=== PATIENT | female | born 1950 | race Caucasian/White ===

== ENCOUNTER → 2017-06-19 | Outpatient (CLI) | payer OTHER, MEDICARE | LOC: FIMAGING 12:35 | PROVIDERS: ATTEND Internal Medicine Endocrinology, Diabetes & Metabolism | DX: Z13.820 Encounter for screening for osteoporosis (principal); M85.89 Other specified disorders of bone density and structure, multiple sites; Z78.0 Asymptomatic menopausal state ==

== ENCOUNTER → 2017-08-28 | Outpatient (CLI) | payer OTHER, MEDICARE | LOC: BMCIMAGING 18:40 | PROVIDERS: ATTEND Family Medicine | DX: M79.672 Pain in left foot (principal) ==

== ENCOUNTER → 2017-11-02 | Outpatient (CLI) | payer OTHER, MEDICARE ==
[~2017-11-02] MED LIST: IOPAMIDOL (ISOVUE-300) 100 ML BTL ONE
== END ==
LOC: FIMAGING 08:24
PROVIDERS: ATTEND Physician Assistant
DX: K76.9 Liver disease, unspecified (principal)
CPT/HCPCS: 74177; Q9967

== ENCOUNTER 2017-11-08 22:15 | Emergency (ER) | payer OTHER, MEDICARE ==
[2017-11-08] MEDS ORDERED: DIAZEPAM 5 MG/ML 1 ML SYR IVP ONE (22:47)
--- NOTE | 2017-11-08 22:47 | EDPHY ---
General - History Smoking Status: Never smoked Time Seen by Provider: 11/08/17 22:41 Narrative: PHYSICIAN DOCUMENTATION: The patient was evaluated and managed by the Physician Clinical Immunologist. My co- signature indicates that I have reviewed this chart and I agree with the findings and plan of care as documented. I am the secondary supervising physician. (Liliana Smith) CHIEF COMPLAINT: Back pain HISTORY OF PRESENT ILLNESS: Patient presents with complaints of back pain. She reports severe pain in the thoracic spine. This been present for 6 weeks. No direct trauma or injury. She thinks this may exacerbated by and ankle sprain injury that placed her in a [place] boot for several weeks. She has severe, 10/10 pain in the thoracic spine. It radiates to the right side at times to the umbilicus. She has no numbness, tingling or weakness distally. She has no lumbar back pain. No chest pain or shortness of breath. No difficulty with the extremities. No incontinence of bowel or bladder. No saddle anesthesia. She has seen her primary care physician for this who is provided Ultram with minimal improvement. She had an MRI done earlier today and she was told her significant stenosis at T10. No other associated complaints or modifying factors. REVIEW OF SYSTEMS: 10 systems were reviewed and negative with the exception of the elements mentioned in the history of present illness. PCP: Dr. Ashton SPECIALISTS: None PAST MEDICAL HISTORY: Arthritis, PAST SURGICAL HISTORY: No surgical history SOCIAL HISTORY: Nonsmoker. Lives independently with her spouse. FAMILY HISTORY: Noncontributory EXAMINATION: General Appearance: Alert, no distress. Lying prone on her knees. Head: normocephalic, atraumatic Eyes: Pupils equal and round, no conjunctival pallor or injection Cardiovascular: Regular rate with good signs of perfusion Gastrointestinal: Abdomen is soft and nondistended. Minimal tenderness of the umbilicus. No guarding. No distention. No tympany rigidity. Back: There is midline tenderness of the lower thoracic spine. No crepitus or deformity. Soft tissue tenderness of the right thoracic spine wrapping to the umbilicus. Neurological: A&O, nonfocal, normal gait Skin: Warm and dry, no rash Extremities: Nontender, no pedal edema DIFFERENTIAL DIAGNOSES: Including but not limited to thoracic degenerative disc disease, acute cord compression, thoracic sprain, thoracic strain, MDM: 10:45 p.m. Severe thoracic back pain with MRI showing moderate to severe right neural foraminal stenosis, mild to moderate left neural foraminal stenosis and moderate degenerative disc with right dorsal disc osteophyte complex. Patient' s pain is too severe to allow me to examine her fully at this time. I have ordered pain medication will re-evaluate. 11:25 p.m. Patient re-evaluated. She is feeling significantly better but not resolved. She is able to lay flat for examination. She exhibits excellent strength in lower extremities including the knees, ankles and great toes. Sensory symmetric in lower extremities. 11:55 p.m. Patient re-evaluated. She is feeling significantly better. She has ambulated without difficulty. She remains steady with an antalgic gait but no ataxia. I did offer admission to the hospital for pain control and she has declined. I do feel it is reasonable for to go home at this time without MRI as she has no focal deficits, her pain is significantly improved and she had an MRI earlier today. We discussed outpatient follow up with the on-call neurosurgeon. We discussed strict ED precautions for any worsening pain, fever, weakness, numbness, incontinence of bowel or bladder, retention of bowel or bladder. She is comfortable this plan and discharged home stable condition. SUPERVISION: Patient was independently examined, but I discussed the case with my secondary supervising physician Dr. Smith CONSULTATION: None. Neurosurgery referral (Jimy Sam) - Objective Vital Signs: Initial Vital Signs Temperature (C) 97.7 F 11/08/17 22:21 Heart Rate 67 11/08/17 22:21 Respiratory Rate 18 11/08/17 22:21 Blood Pressure 153/119 H 11/08/17 22:21 O2 Sat (%) 97 11/08/17 22:21 O2 Delivery Mode Room Air Allergies/Adverse Reactions: codeine Allergy (Verified 11/08/17 22:21) Sulfa (Sulfonamide Antibiotics) Allergy (Verified 11/08/17 22:21) Home Medications: Medication Instructions Recorded Cyclobenzaprine [Cyclobenzaprine 5 mg PO TID #12 tab 11/09/17 HCl] Ondansetron Odt [Zofran Odt 4 mg 4 mg PO Q6 PRN #12 tab 11/09/17 (*)] methylPREDNISolone [Medrol Dose 1 each PO AD #1 ea 11/09/17 Julius] oxyCODONE HCL/ACETAMINOPHEN 1 each PO Q4-6PRN PRN #12 tablet 11/09/17 [Percocet 5-325 mg Tablet] Medications Given: Discontinued Medications Cyclobenzaprine HCl (Flexeril 10 Mg Prepack#3) 1 btl TAKEHOME EDNOW ONE Stop: 11/08/17 23:58 Last Admin: 11/09/17 00:13 Dose: 1 btl Dexamethasone (Decadron Injection) 10 mg IVP EDNOW ONE Stop: 11/08/17 22:49 Last Admin: 11/08/17 22:56 Dose: 10 mg Diazepam (Valium) 2 mg IVP EDNOW ONE Stop: 11/08/17 22:48 Last Admin: 11/08/17 22:56 Dose: 2 mg Morphine Sulfate (Morphine) 4 mg IVP EDNOW ONE Stop: 11/08/17 22:48 Last Admin: 11/08/17 22:56 Dose: 4 mg Ondansetron HCl (Zofran) 4 mg IVP EDNOW ONE Stop: 11/08/17 22:49 Last Admin: 11/08/17 22:56 Dose: 4 mg Ondansetron HCl (Zofran Odt 4 Mg Prepack#2) 1 btl TAKEHOME EDNOW ONE Stop: 11/08/17 23:58 Last Admin: 11/09/17 00:14 Dose: 1 btl Oxycodone/Acetaminophen (Percocet 5/325mg Prepack#4) 1 btl TAKEHOME EDNOW ONE Stop: 11/08/17 23:58 Last Admin: 11/09/17 00:15 Dose: 1 btl Departure - Departure Disposition: Home, Routine, Self-Care Clinical Impression: Neural foraminal stenosis of thoracic spine, Bone spur Condition: Good Instructions: Oxycodone/Acetaminophen (By mouth), Cyclobenzaprine (By mouth), Ondansetron (By mouth), Degenerative Disc Disease (ED) Additional Instructions: 1. Medications as prescribed as needed for symptoms 2. Contact her primary care physician tomorrow morning 3. Contact on-call neurosurgeon as provided for outpatient definitive care 4. ED precautions for return of pain, numbness, tingling, weakness, incontinence of bowel or bladder, retention of bowel or bladder 5. I recommend that you take an [id number] stool softener while taking the pain medication. Recommend colace as instructed on the bottle 6. Discontinue your use of Ultram while taking the above medications Referrals: Loretta Montague MD [Primary Care Provider] - As per Instructions Gregor Durán MD [Medical Doctor] - As per Instructions Prescriptions: Cyclobenzaprine [Cyclobenzaprine HCl] 5 mg PO TID #12 tab methylPREDNISolone [Medrol Dose Julius] 1 each PO AD #1 ea Ondansetron Odt [Zofran Odt 4 mg (*)] 4 mg PO Q6 PRN #12 tab PRN Reason: Nausea/Vomiting, Use 1st oxyCODONE HCL/ACETAMINOPHEN [Percocet 5-325 mg Tablet] 1 each PO Q4-6PRN PRN # 12 tablet PRN Reason: Pain, Breakthrough
[2017-11-08] MEDS ORDERED: ONDANSETRON 4 MG/2 ML VIAL IVP ONE (22:48)
[2017-11-08] MEDS ORDERED: DEXAMETHASONE 10 MG/ML VIAL IVP ONE (22:48)
[2017-11-08] MEDS ORDERED: OXYCODONE/APAP 5/325MG PREPACK#4 BTL TAKEHOME ONE (23:57)
[2017-11-08] MEDS ORDERED: CYCLOBENZAPRINE 10MG PREPACK#3 BTL TAKEHOME ONE (23:57)
[2017-11-08] MEDS ORDERED: ONDANSETRON 4MG PREPACK#2 BTL TAKEHOME ONE (23:57)
[2017-11-09 00:13] VITALS: BP 138/76
== END 2017-11-09 00:23 | disposition home or self-care (01) ==
DX: M48.04 Spinal stenosis, thoracic region (principal); M46.04 Spinal enthesopathy, thoracic region
CPT/HCPCS: 96374; 96375; 99284; J1100; J2270; J2405; J3360

== ENCOUNTER → 2017-11-08 | Outpatient (CLI) | payer OTHER, MEDICARE | LOC: FIMAGING 08:55 | PROVIDERS: ATTEND Physician Assistant | DX: M54.9 Dorsalgia, unspecified (principal); M51.34 Other intervertebral disc degeneration, thoracic region ==

== ENCOUNTER → 2017-11-08 | Outpatient (CLI) | payer OTHER, MEDICARE | LOC: FIMAGING 07:46 | PROVIDERS: ATTEND Physician Assistant | DX: M51.34 Other intervertebral disc degeneration, thoracic region (principal); M48.04 Spinal stenosis, thoracic region ==

== ENCOUNTER → 2017-11-11 | Outpatient (CLI) | payer OTHER, MEDICARE | LOC: FIMAGING 09:10 | PROVIDERS: ATTEND Physical Medicine & Rehabilitation Neuromuscular Medicine | DX: T84.296A Other mechanical complication of internal fixation device of vertebrae, initial encounter (principal); M54.16 Radiculopathy, lumbar region; M54.5 Low back pain; Z98.1 Arthrodesis status ==

== ENCOUNTER → 2017-11-14 | Outpatient (CLI) | payer OTHER, MEDICARE ==
[~2017-11-14] MED LIST changes: +GADOBUTROL 10 ML VIAL IVP ONE; -IOPAMIDOL (ISOVUE-300) 100 ML BTL ONE
== END ==
LOC: FIMAGING 09:26
PROVIDERS: ATTEND Physical Medicine & Rehabilitation Neuromuscular Medicine
DX: Z98.1 Arthrodesis status (principal)
CPT/HCPCS: 72158; A9585

== ENCOUNTER → 2018-06-25 | Outpatient (CLI) | payer OTHER, MEDICARE | LOC: FIMAGING 12:46 | PROVIDERS: ATTEND Internal Medicine | DX: Z12.31 Encounter for screening mammogram for malignant neoplasm of breast (principal) ==